=== PATIENT | female | born 1985 | race Caucasian/White ===

== ENCOUNTER 2018-10-17 21:56 | Emergency (ER) | payer SELFPAY ==
[2018-10-17] MEDS ORDERED: Sodium Chloride 0.9% 1,000 ML IV ONE (22:20)
[2018-10-17] MEDS ORDERED: Ondansetron 4 MG/2 ML SDV IVPUSH ONE (22:21)
[2018-10-17] MEDS ORDERED: HYDROmorphone 1 MG/ML Syringe IVPUSH ONE (22:37)
[2018-10-17] MEDS ORDERED: Metoclopramide 10 MG/2 ML SDV IVPUSH ONE (23:03)
[2018-10-18] MEDS ORDERED: diphenhydrAMINE 50 MG/ML SDV IVPUSH ONE (00:31)
[2018-10-18] MEDS ORDERED: Sodium Chloride 0.9% 1,000 ML IV ONE (00:36)
--- NOTE | 2018-10-18 01:04 | EDM.PDOC ---
ED HPI GENERAL MEDICAL PROBLEM - General Chief Complaint: Abdominal Pain Stated Complaint: VOMMITTING AND DIARIAH FOR HOURS LIGHTHEADED Time Seen by Provider: 10/17/18 22:32 Source of Information: Reports: Patient History Limitations: Reports: No Limitations - History of Present Illness INITIAL COMMENTS - FREE TEXT/NARRATIVE: The patient presents with nausea, vomiting, diarrhea and abdominal pain. This started today. She has no fever but she does have chills. She has no chest pain or shortness of breath. She has no appendix but she still has a gallbladder. She does not think she is . She did not come in contact with anyone who is sick and she has not eaten any bad food. Onset: Gradual Duration: Hour(s): Location: Reports: Abdomen Quality: Reports: Sharp Severity: Severe Improves with: Reports: None Worsens with: Reports: None Associated Symptoms: Reports: Fever/Chills, Nausea/Vomiting. Denies: Chest Pain , Cough, Headaches, Shortness of Breath Middle Abdomen Pain Score (Numeric/FACES): 0 - Related Data Allergies Allergy/AdvReac Type Severity Reaction Status Date / Time aspirin Allergy Lightheaded Verified 10/17/18 22:32 ness Home Meds: Home Meds Ondansetron [Zofran ODT] 4 mg PO Q6H PRN #20 tab.dis 10/18/18 [Rx] ED ROS GENERAL - Review of Systems Review Of Systems: See Below Constitutional: Reports: Chills. Denies: Fever HEENT: Reports: No Symptoms Respiratory: Reports: No Symptoms Cardiovascular: Reports: No Symptoms Endocrine: Reports: No Symptoms GI/Abdominal: Reports: Abdominal Pain, Diarrhea, Nausea, Vomiting : Reports: No Symptoms Musculoskeletal: Reports: No Symptoms Skin: Reports: No Symptoms Neurological: Reports: No Symptoms ED EXAM, GI/ABD - Physical Exam Exam: See Below Exam Limited By: No Limitations General Appearance: Alert, No Apparent Distress Ears: Normal External Exam Nose: Normal Inspection Head: Atraumatic, Normocephalic Neck: Normal Inspection Respiratory/Chest: No Respiratory Distress, Lungs Clear, Normal Breath Sounds Cardiovascular: Regular Rate, Rhythm, No Edema, No Murmur GI/Abdominal Exam: Soft, No Organomegaly, No Mass, Tender (Moderate tenderness to the upper abdomen) Course - Vital Signs Last Recorded V/S: Last Vital Signs Temp 96.5 F 10/17/18 22:28 Pulse 105 H 10/17/18 22:28 Resp 20 10/17/18 22:28 BP 118/67 10/17/18 22:28 Pulse Ox 97 10/17/18 22:28 - Orders/Labs/Meds Orders: Active Orders 24 hr Category Date Time Status Abdomen Pelvis w Cont [CT] Stat Exams 10/18/18 00:31 Taken ED Antiemetic Medication Reflex [OM.PC] Stat Oth 10/17/18 22:37 Ordered Labs: Laboratory Tests 10/17/18 10/17/18 10/17/18 Range/Units 22:25 22:25 22:25 WBC 19.81 H (3.98-10.04) K/mm3 RBC 5.21 (3.98-5.22) M/mm3 Hgb 15.4 (11.2-15.7) gm/L Hct 46.2 H (34.1-44.9) % MCV 88.7 (79.4-94.8) fl MCH 29.6 (25.6-32.2) pg MCHC 33.3 (32.2-35.5) g/dl RDW Std Deviation 44.6 (36.4-46.3) fL Plt Count 462 H (182-369) K/mm3 MPV 10.0 (9.4-12.3) fl Neut % (Auto) 86.2 H (34.0-71.1) % Lymph % (Auto) 6.4 L (19.3-51.7) % Cole % (Auto) 5.9 (4.7-12.5) % Eos % (Auto) 1.0 (0.7-5.8) Baso % (Auto) 0.2 (0.1-1.2) % Neut # (Auto) 17.10 H (1.56-6.13) K/mm3 Lymph # (Auto) 1.26 (1.18-3.74) K/mm3 Cole # (Auto) 1.17 H (0.24-0.36) K/mm3 Eos # (Auto) 0.19 (0.04-0.36) K/mm3 Baso # (Auto) 0.03 (0.01-0.08) K/mm3 Manual Slide Review Abnormal smear Sodium 139 (136-145) mEq/L Potassium 4.2 (3.5-5.1) mEq/L Chloride 104 (98-107) mEq/L Carbon Dioxide 24 (21-32) mEq/L Anion Gap 15.2 H (5-15) BUN 17 (7-18) mg/dL Creatinine 1.0 (0.55-1.02) mg/dL Est Cr Clr Drug Dosing 89.43 mL/min Estimated GFR (MDRD) > 60 (>60) mL/min BUN/Creatinine Ratio 17.0 (14-18) Glucose 147 H (74-106) mg/dL Calcium 9.0 (8.5-10.1) mg/dL Total Bilirubin 0.7 (0.2-1.0) mg/dL AST 11 L (15-37) U/L ALT 21 (14-59) U/L Alkaline Phosphatase 79 (46-116) U/L Total Protein 8.7 H (6.4-8.2) g/dl Albumin 4.1 (3.4-5.0) g/dl Globulin 4.6 gm/dL Albumin/Globulin Ratio 0.9 L (1-2) Lipase 108 (73-393) U/L Urine Color (Yellow) Urine Appearance (Clear) Urine pH (5.0-8.0) Ur Specific [place] (1.005-1.030) Urine Protein (Negative) Urine Glucose (UA) (Negative) Urine Ketones (Negative) Urine Occult Blood (Negative) Urine Nitrite (Negative) Urine Bilirubin (Negative) Urine Urobilinogen (0.2-1.0) Ur Leukocyte Esterase (Negative) Urine HCG, Qual (NEGATIVE) 10/18/18 10/18/18 Range/Units 00:17 00:17 WBC (3.98-10.04) K/mm3 RBC (3.98-5.22) M/mm3 Hgb (11.2-15.7) gm/L Hct (34.1-44.9) % MCV (79.4-94.8) fl MCH (25.6-32.2) pg MCHC (32.2-35.5) g/dl RDW Std Deviation (36.4-46.3) fL Plt Count (182-369) K/mm3 MPV (9.4-12.3) fl Neut % (Auto) (34.0-71.1) % Lymph % (Auto) (19.3-51.7) % Cole % (Auto) (4.7-12.5) % Eos % (Auto) (0.7-5.8) Baso % (Auto) (0.1-1.2) % Neut # (Auto) (1.56-6.13) K/mm3 Lymph # (Auto) (1.18-3.74) K/mm3 Cole # (Auto) (0.24-0.36) K/mm3 Eos # (Auto) (0.04-0.36) K/mm3 Baso # (Auto) (0.01-0.08) K/mm3 Manual Slide Review Sodium (136-145) mEq/L Potassium (3.5-5.1) mEq/L Chloride (98-107) mEq/L Carbon Dioxide (21-32) mEq/L Anion Gap (5-15) BUN (7-18) mg/dL Creatinine (0.55-1.02) mg/dL Est Cr Clr Drug Dosing mL/min Estimated GFR (MDRD) (>60) mL/min BUN/Creatinine Ratio (14-18) Glucose (74-106) mg/dL Calcium (8.5-10.1) mg/dL Total Bilirubin (0.2-1.0) mg/dL AST (15-37) U/L ALT (14-59) U/L Alkaline Phosphatase (46-116) U/L Total Protein (6.4-8.2) g/dl Albumin (3.4-5.0) g/dl Globulin gm/dL Albumin/Globulin Ratio (1-2) Lipase (73-393) U/L Urine Color Yellow (Yellow) Urine Appearance Clear (Clear) Urine pH 5.5 (5.0-8.0) Ur Specific [place] > or = 1.030 (1.005-1.030) Urine Protein Trace H (Negative) Urine Glucose (UA) Negative (Negative) Urine Ketones Trace H (Negative) Urine Occult Blood Negative (Negative) Urine Nitrite Negative (Negative) Urine Bilirubin Negative (Negative) Urine Urobilinogen 0.2 (0.2-1.0) Ur Leukocyte Esterase Negative (Negative) Urine HCG, Qual Negative (NEGATIVE) Meds: Medications Discontinued Medications Generic Name Dose Route Start Last Admin Trade Name Marii PRN Reason Stop Dose Admin Diphenhydramine HCl 50 mg 10/18/18 00:31 10/18/18 00:38 Benadryl IVPUSH 10/18/18 00:32 50 mg ONETIME ONE Administration Hydromorphone HCl 0.5 mg 10/17/18 22:37 10/17/18 22:48 Dilaudid IVPUSH 10/17/18 22:38 0.5 mg ONETIME ONE Administration Sodium Chloride 1,000 mls @ 999 mls/hr 10/17/18 22:20 10/17/18 22:31 Normal Saline IV 10/17/18 23:20 999 mls/hr ONETIME ONE Administration Sodium Chloride 1,000 mls @ 1,000 mls/hr 10/18/18 00:36 10/18/18 00:39 Normal Saline IV 10/18/18 01:35 1,000 mls/hr ONETIME ONE Administration Iopamidol 100 ml 10/18/18 01:30 10/18/18 02:11 Isovue-370 (76%) IV 10/18/18 01:31 100 ml ONETIME ONE Administration Metoclopramide HCl 10 mg 10/17/18 23:03 10/17/18 23:11 Reglan IVPUSH 10/17/18 23:04 10 mg ONETIME ONE Administration Ondansetron HCl 4 mg 10/17/18 22:21 10/17/18 22:31 Zofran IVPUSH 10/17/18 22:22 4 mg ONETIME ONE Administration - Re-Assessments/Exams Free Text/Narrative Re-Assessment/Exam: 10/18/18 01:02 I ordered an IV NS 1L bolus, zofran 4mg IV, labs, and UA. Her WBC is elevated at 19.81. Her anion gap was elevated slightly at 15.2. Her glucose is elevated at 147. Her lipase is normal. Her HCG is negative. Her UA shows no UTI. She still has nausea so I ordered reglan 10mg and then benadryl 50mg IV. I ordered a CT because of her WBC and pain. 10/18/18 03:[address] shows nothing acute. I will discharge her home. Departure - Departure Time of Disposition: 03:35 Disposition: Home, Self-Care 01 Condition: Good Clinical Impression: Gastroenteritis - Discharge Information *PRESCRIPTION DRUG MONITORING PROGRAM REVIEWED*: Not Applicable *COPY OF PRESCRIPTION DRUG MONITORING REPORT IN PATIENT VALE: Not Applicable Prescriptions: Ondansetron [Zofran ODT] 4 mg PO Q6H PRN #20 tab.dis PRN Reason: Nausea\vomiting Referrals: PCP,None [Primary Care Provider] - Delores Leblanc PA-C [Physician Applied Technologist] - Forms: ED Department Discharge Additional Instructions: Drink plenty of fluids like water, powerade, or gatorade. Take the zofran every 6 hours as needed for nausea or vomiting. Advance your diet as tolerated. Start with liquids tomorrow and then advance to crackers or something mile and advance from there. Please return if you are worse. - My Orders Last 24 Hours: My Active Orders 10/17/18 22:37 ED Antiemetic Medication Reflex [OM.PC] Stat 10/18/18 00:31 Abdomen Pelvis w Cont [CT] Stat - Assessment/Plan Last 24 Hours: My Active Orders 10/17/18 22:37 ED Antiemetic Medication Reflex [OM.PC] Stat 10/18/18 00:31 Abdomen Pelvis w Cont [CT] Stat
[2018-10-18] MEDS ORDERED: Iopamidol 755 Mg/ML 200 ML Bottle IV ONE (01:30)
[2018-10-18] MEDS ORDERED: Ondansetron 4 MG/2 ML SDV IVPUSH ONE (03:32)
--- NOTE | 2018-10-18 07:19 | CT ---
CT abdomen and pelvis Technique: Multiple axial sections were obtained from above the dome of the diaphragm inferiorly through the pubic symphysis. Intravenous contrast was utilized. No oral contrast has been given which limits evaluation of bowel. Comparison: No prior abdominal imaging. Findings: Small portion of the visualized lung bases shows nothing acute. Liver contains no focal parenchymal abnormality but shows mild diffuse decreased density compatible with fatty infiltration. Spleen appears within normal limits. Adrenal glands show no nodule. Kidneys show symmetric contrast enhancement without hydronephrosis or mass. Pancreas is within normal limits. Gallbladder contains no calcified gallstones. Aorta shows no aneurysm. No retroperitoneal adenopathy or mesenteric abnormalities are seen. No pelvic mass or adenopathy is seen. Scattered fluid is seen within the colon and small bowel with no bowel dilatation being seen. Delayed images show contrast within the ureters and within the bladder. Incidental IUD is noted within the uterus. Bone window settings were reviewed which appear within normal limits for the patient's age. Impression: 1. Fatty infiltration within the liver. 2. Fluid within nondilated colon and small bowel. Please correlate if patient has any symptoms of gastroenteritis. 3. No additional abnormality appreciated on CT study of the abdomen and pelvis. Diagnostic code #3 I agree with preliminary report from [facility], finalized on 10/18/18, 4:28 AM Central Time
== END 2018-10-18 03:47 | disposition home or self-care (01) ==
LOC: JD.ED 21:56
DX: K52.9 Noninfective gastroenteritis and colitis, unspecified (principal); Z88.6 Allergy status to analgesic agent
CPT/HCPCS: 36415; 74177; 80053; 81003; 81025; 83690; 85025; 96361; 96374; 96375; 96376; 99284; J1170; J1200; J2405; J2765; J7040; Q9967

== ENCOUNTER 2020-06-11 20:52 | Emergency (ER) | payer MEDICAID ==
[2020-06-11] MEDS ORDERED: Amoxicillin/Clavulanate K 875-125 MG Tab PO ONE (22:02)
--- NOTE | 2020-06-11 22:11 | EDM.PDOC ---
ED HPI GENERAL MEDICAL PROBLEM - General Chief Complaint: Respiratory Problem Stated Complaint: SOB Time Seen by Provider: 06/11/20 21:06 Source of Information: Reports: Patient, RN Notes Reviewed History Limitations: Reports: No Limitations - History of Present Illness INITIAL COMMENTS - FREE TEXT/NARRATIVE: Patient is a 34-year-old female presenting to the emergency department with complaints of a 2-week history of sinus pressure and congestion as well as postnasal drip. Tonight she developed a cough and a feeling of shortness of breath and tightness in her right chest. She denies any fever or chills, nausea, vomiting, or diarrhea. No one else within her family is sick. Vital signs on triage showed an oxygen saturation of 98% on room air, respiratory rate 16, blood pressure slightly elevated at 160/89, pulse 87, temperature 96.7. Chest Pain Score (Numeric/FACES): 7 - Related Data Allergies Allergy/AdvReac Type Severity Reaction Status Date / Time coconut Allergy Severe Hives Verified 06/11/20 21:04 aspirin AdvReac Severe Other Verified 06/11/20 21:04 Home Meds: Home Meds Amoxicillin/Clavulanate K [Augmentin 875-125 MG] 1 tab PO BID 14 Days #7 tablet 06/11/20 [Rx] Azithromycin 250 mg PO ASDIRECTED 4 Days #4 tablet 06/11/20 [Rx] Copper [Paragard T 380-A] 1 each IY ASDIRECTED 06/11/20 [History] Sertraline [Zoloft] 50 mg PO DAILY 06/11/20 [History] Past Medical History Gastrointestinal History: Reports: Inflammatory Bowel Disease PELTS SKINNER History: Reports: Musculoskeletal History: Reports: Other (See Below) Psychiatric History: Reports: Anxiety Endocrine/Metabolic History: Reports: Diabetes, Gestational, Obesity/BMI 30+ - Infectious Disease History Infectious Disease History: Reports: Shingles - Past Surgical History HEENT Surgical History: Reports: Oral Surgery GI Surgical History: Reports: Appendectomy Social & Family History - Family History Family Medical History: No Pertinent Family History - Tobacco Use Tobacco Use Status *Q: Never Tobacco User - Caffeine Use Caffeine Use: Reports: Coffee - Recreational Drug Use Recreational Drug Use: No - Living Situation & Occupation Living situation: Reports: , with Spouse, with Family (2 kids) Occupation: Unemployed ED ROS GENERAL - Review of Systems Review Of Systems: See Below Constitutional: Reports: No Symptoms. Denies: Fever, Chills, Fatigue HEENT: Reports: Sinus Problem Respiratory: Reports: Shortness of Breath, Cough Cardiovascular: Reports: No Symptoms Endocrine: Reports: No Symptoms GI/Abdominal: Reports: No Symptoms : Reports: No Symptoms Musculoskeletal: Reports: No Symptoms Skin: Reports: No Symptoms Neurological: Reports: No Symptoms Psychiatric: Reports: No Symptoms Hematologic/Lymphatic: Reports: No Symptoms Immunologic: Reports: No Symptoms ED EXAM, GENERAL - Physical Exam Exam: See Below Exam Limited By: No Limitations General Appearance: Alert, WD/WN, No Apparent Distress Head: Atraumatic, Normocephalic, Sinus Tenderness (bilateral maxillary and frontal) Neck: Normal Inspection, Supple, Non-Tender, Full Range of Motion Respiratory/Chest: No Respiratory Distress, Lungs Clear, Normal Breath Sounds, No Accessory Muscle Use, Chest Non-Tender Cardiovascular: Normal Peripheral Pulses, Regular Rate, Rhythm, No Edema, No Gallop, No JVD, No Murmur, No Rub GI/Abdominal: Normal Bowel Sounds, Soft, Non-Tender, No Organomegaly, No Distention, No Abnormal Bruit, No Mass Neurological: Alert, Oriented, CN II-XII Intact, Normal Cognition, Normal Gait, Normal Reflexes, No Motor/Sensory Deficits Psychiatric: Normal Affect, Normal Mood Skin Exam: Warm, Dry, Intact, Normal Color, No Rash Course - Vital Signs Last Recorded V/S: Last Vital Signs Temp 96.7 F L 06/11/20 21:00 Pulse 87 06/11/20 21:00 Resp 16 06/11/20 21:00 BP 160/89 H 06/11/20 21:00 Pulse Ox 98 06/11/20 21:00 - Orders/Labs/Meds Orders: Active Orders 24 hr Category Date Time Status Chest 1V Frontal [CR] Stat Exams 06/11/20 21:06 Taken CORONAVIRUS COVID-19 PCR PHL Routine Lab 06/11/20 21:07 Ordered Amoxicillin/Clavulanate K [Augmentin 875 MG/125 MG] Med 06/11/20 22:02 Once 1 tab PO ONETIME ONE Azithromycin [Zithromax] Med 06/11/20 22:15 Ordered 500 mg PO DAILY Medication Orders Azithromycin (Zithromax) 500 mg PO DAILY DAMASO Meds: Medications Generic Name Dose Route Start Last Admin Trade Name Marii PRN Reason Stop Dose Admin Azithromycin 500 mg 06/11/20 22:15 Zithromax PO DAILY DAMASO - Re-Assessments/Exams Free Text/Narrative Re-Assessment/Exam: 06/11/20 22:12 Patient is a 34-year-old female presenting to the emergency department with complaints of a 2-week history of what she describes as a sinus infection as well as onset of cough and shortness of breath this evening. She has had no known sick exposures. Oxygen saturation was 98% on room air. Chest x-ray shows right basilar alveolar density concerning for pneumonia. Given her 2-week history of nasal congestion as well as the x-ray findings, it is possible that she could be suffering from COVID-19, however chest x-ray does not differentiate between viral and bacterial pneumonia. She could also be suffering from a bacterial sinusitis with community-acquired pneumonia. Plans for today will be to start her on treatment with Augmentin for sinusitis of azithromycin for committee acquired pneumonia. We will Covid test her. Recommend isolation. Discussed return precautions. Discharge instructions as documented. Departure - Departure Time of Disposition: 22:14 Disposition: Home, Self-Care 01 Condition: Good Clinical Impression: Pneumonia Qualifiers: Pneumonia type: due to unspecified organism Laterality: right Lung location: unspecified part of lung Qualified Code(s): J18.9 - Pneumonia, unspecified organism Sinusitis Qualifiers: Sinusitis location: unspecified location Chronicity: acute Recurrence: not specified as recurrent Qualified Code(s): J01.90 - Acute sinusitis, unspecified - Discharge Information *PRESCRIPTION DRUG MONITORING PROGRAM REVIEWED*: No *COPY OF PRESCRIPTION DRUG MONITORING REPORT IN PATIENT VALE: No Prescriptions: Amoxicillin/Clavulanate K [Augmentin 875-125 MG] 1 tab PO BID 14 Days #7 tablet Azithromycin 250 mg PO ASDIRECTED 4 Days #4 tablet Instructions: Shortness of Breath, Adult, [id number], Sinusitis, Adult Referrals: Delores Leblanc PA-C [Primary Care Provider] - Additional Instructions: You were seen in the emergency department today for 2-week history of sinus congestion and pressure as well as onset of cough and shortness of breath this evening. 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 Your sinus pressure could also be viral, however given a 2-week history, we will treat as possible bacterial sinusitis as well. You been started on Augmentin for treatment of sinusitis as well as azithromycin for treatment of community-acquired pneumonia. You have been tested for COVID-19. You will be notified when results are available which is generally 24 to 72 hours. You should isolate at home until symptoms resolve or until advised otherwise by the [facility]. Return to ER for any new or worsening symptoms of concern. Sepsis Event Note (ED) - Evaluation Sepsis Screening Result: No Definite Risk - Focused Exam Vital Signs: Vital Signs Temp Pulse Resp BP Pulse Ox 06/11/20 21:00 96.7 F L 87 16 160/89 H 98 - My Orders Last 24 Hours: My Active Orders 06/11/20 21:06 Chest 1V Frontal [CR] Stat 06/11/20 21:07 CORONAVIRUS COVID-19 PCR PHL Routine 06/11/20 22:02 Amoxicillin/Clavulanate K [Augmentin 875 MG/125 MG] 1 tab PO ONETIME ONE 06/11/20 22:15 Azithromycin [Zithromax] 500 mg PO DAILY - Assessment/Plan Last 24 Hours: My Active Orders 06/11/20 21:06 Chest 1V Frontal [CR] Stat 06/11/20 21:07 CORONAVIRUS COVID-19 PCR PHL Routine 06/11/20 22:02 Amoxicillin/Clavulanate K [Augmentin 875 MG/125 MG] 1 tab PO ONETIME ONE 06/11/20 22:15 Azithromycin [Zithromax] 500 mg PO DAILY
[2020-06-11] MEDS ORDERED: Azithromycin 250 MG Tab PO SCH (22:15)
--- NOTE | 2020-06-12 08:59 | CR ---
PROCEDURE INFORMATION: Exam: XR Chest, 1 View Exam date and time: 06/11/2020 9:06 PM Age: 34 years old Clinical indication: Cough and shortness of breath; Patient HX: Cough, SOB TECHNIQUE: Imaging protocol: XR of the chest Views: 1 view. COMPARISON: No relevant prior studies available. FINDINGS: Lungs: Normal pulmonary expansion. Pulmonary vasculature grossly normal. Right basilar alveolar opacities concerning for pneumonia. Pleural space: No pleural effusion. No pneumothorax. Heart/Mediastinum: Heart size normal. No tracheal/mediastinal shift. Bones/joints: No acute osseous abnormalities are identified. IMPRESSION: Right basilar alveolar density concerning for pneumonia. Thank you for allowing us to participate in the care of your patient. Dictated and Authenticated by: Joe Mcclendon MD 06/11/2020 10:39 PM Central Time ([place] & [place]) [facility]ENTER[facility]
== END 2020-06-11 22:35 | disposition home or self-care (01) ==
LOC: JD.ED 20:52
DX: U07.1 COVID-19 (principal); J12.89 Other viral pneumonia; J01.90 Acute sinusitis, unspecified; F41.9 Anxiety disorder, unspecified; E66.9 Obesity, unspecified; Z68.39 Body mass index [BMI] 39.0-39.9, adult; Z91.018 Allergy to other foods; Z88.6 Allergy status to analgesic agent; Z79.899 Other long term (current) drug therapy
CPT/HCPCS: 71045; 87635; 99285; A9270; 99283; U0002

== ENCOUNTER 2020-10-26 16:05 | Emergency (ER) | payer MEDICAID, OTHER ==
[2020-10-26] MEDS ORDERED: LORazepam 0.5 MG Tab PO ONE (16:29)
--- NOTE | 2020-10-26 16:36 | EDM.PDOC ---
ED HPI GENERAL MEDICAL PROBLEM - General Chief Complaint: Behavioral/Psych Stated Complaint: ANXIETY ATTACK Time Seen by Provider: 10/26/20 16:13 Source of Information: Reports: Patient, RN Notes Reviewed History Limitations: Reports: No Limitations - History of Present Illness INITIAL COMMENTS - FREE TEXT/NARRATIVE: Patient is a 35-year-old female who presents to the ER for her panic attack. Patient notes that she has been having increasing issues with 's behavioral health for some time but today seems to have worsened quite a bit. Apparently her is likely experiencing a psychotic episode. He has not been threatening to her however. She does note that she is complaining of chest tightness, trouble catching her breath. She is somewhat shook up, and tearful when answering questions but answers everything appropriately. She does have a history of anxiety, and has been prescribed Klonopin as needed for this but states that she only takes this at nighttime as it seems to make her very sleepy. She denies any fevers or chills, cough or shortness of breath, nausea/vomiting/diarrhea. 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: Musculoskeletal History: Reports: Other (See Below) Psychiatric History: Reports: Anxiety Endocrine/Metabolic History: Reports: Diabetes, Gestational, Obesity/BMI 30+ - Infectious Disease History Infectious Disease History: Reports: Novel Coronavirus (May 2020), Shingles - Past Surgical History HEENT Surgical History: Reports: Oral Surgery GI Surgical History: Reports: Appendectomy Social & Family History - Family History Family Medical History: No Pertinent Family History - Tobacco Use Tobacco Use Status *Q: Never Tobacco User - Caffeine Use Caffeine Use: Reports: Coffee - Recreational Drug Use Recreational Drug Use: No - Living Situation & Occupation Living situation: Reports: , with Spouse, with Family (2 kids) Occupation: Unemployed ED ROS GENERAL - Review of Systems Review Of Systems: Comprehensive ROS is negative, except as noted in HPI. ED EXAM, GENERAL - Physical Exam Exam: See Below Exam Limited By: No Limitations General Appearance: Alert, WD/WN, No Apparent Distress Respiratory/Chest: No Respiratory Distress, Lungs Clear, Normal Breath Sounds, No Accessory Muscle Use, Chest Non-Tender Cardiovascular: Normal Peripheral Pulses, Regular Rate, Rhythm, No Edema, No Murmur Peripheral Pulses: 2+: Radial (L), Radial (R) GI/Abdominal: Normal Bowel Sounds, Soft, Non-Tender, No Distention, No Mass Extremities: Normal Inspection, Normal Capillary Refill Neurological: Alert, Oriented, Normal Cognition, No Motor/Sensory Deficits Psychiatric: Normal Affect, Normal Mood Skin Exam: Warm, Dry, Intact, Normal Color, No Rash Course - Vital Signs Last Recorded V/S: Last Vital Signs Temp 98.7 F 10/26/20 16:12 Pulse 108 H 10/26/20 16:12 Resp 16 10/26/20 16:12 BP 144/97 H 10/26/20 16:12 Pulse Ox 98 10/26/20 16:12 - Orders/Labs/Meds Meds: Medications Discontinued Medications Generic Name Dose Route Start Last Admin Trade Name Marii PRN Reason Stop Dose Admin Lorazepam 1 mg 10/26/20 16:29 10/26/20 16:40 Lorazepam 0.5 Mg Tab PO 10/26/20 16:30 1 mg ONETIME ONE Administration - Re-Assessments/Exams Free Text/Narrative Re-Assessment/Exam: 10/26/20 16:33 Patient presents to the ER for her anxiety attack, I will give her 1 mg p.o. Ativan for initial management. 10/26/20 17:58 Patient was reassessed at bedside, and states that her anxiety is much better. We will go ahead and discharge home with a few tablets of Ativan, and have her follow with Hermila Goodman sometime this week or into the next week about ongoing stress management. Departure - Departure Time of Disposition: 17:59 Disposition: Home, Self-Care 01 Condition: Good Clinical Impression: Panic attack due to exceptional stress - Discharge Information *PRESCRIPTION DRUG MONITORING PROGRAM REVIEWED*: Yes *COPY OF PRESCRIPTION DRUG MONITORING REPORT IN PATIENT VALE: No Prescriptions: LORazepam [Ativan] 1 mg PO TID PRN #12 tab PRN Reason: Anxiety Instructions: Panic Attack, [id number] Referrals: Hermila Goodman ROVER TENDER [Primary Care Provider] - Forms: ED Department Discharge Additional Instructions: You were seen in the ER for your panic attack. You were given 1mg PO Ativan (lorazepam) while being in the ER, this seemed to help relieve your anxiety. You were given a prescription for this medication to help relieve your anxiety over the next few days. This medication was electronically sent to the [facility] located near [facility]. Please schedule a follow up appointment with your primary provider, Hermila Goodman to discuss you anxiety medications. Please return to the ER at any time if your symptoms change or worsen. Sepsis Event Note (ED) - Evaluation Sepsis Screening Result: No Definite Risk - Focused Exam Vital Signs: Vital Signs Temp Pulse Resp BP Pulse Ox 10/26/20 16:12 98.7 F 108 H 16 144/97 H 98
== END 2020-10-26 18:42 | disposition home or self-care (01) ==
LOC: JD.ED 16:05
DX: F41.0 Panic disorder [episodic paroxysmal anxiety] (principal); F43.9 Reaction to severe stress, unspecified; E66.9 Obesity, unspecified; Z68.38 Body mass index [BMI] 38.0-38.9, adult; Z91.018 Allergy to other foods; Z88.6 Allergy status to analgesic agent
CPT/HCPCS: 99283; A9270

== ENCOUNTER 2021-01-07 19:43 | Emergency (ER) | payer MEDICAID ==
[2021-01-07] MEDS ORDERED: Ondansetron 4 MG/2 ML SDV IVPUSH ONE (20:12)
[2021-01-07] MEDS ORDERED: Sodium Chloride 0.9% 10 ML Syringe FLUSH PRN (20:12)
[2021-01-07] MEDS ORDERED: Ketorolac 30 MG/ML SDV IVPUSH ONE (20:12)
[2021-01-07] MEDS ORDERED: Sodium Chloride 0.9% 1,000 ML IV ONE ×2 (20:12→23:23)
--- NOTE | 2021-01-07 20:18 | EDM.PDOC ---
<Mary Allen M - Last Filed: 01/08/21 01:07> ED HPI GENERAL MEDICAL PROBLEM - General Chief Complaint: Flank Pain Stated Complaint: POSS KIDNEY STONE Time Seen by Provider: 01/07/21 20:00 Source of Information: Reports: Patient History Limitations: Reports: No Limitations - History of Present Illness INITIAL COMMENTS - FREE TEXT/NARRATIVE: 35-year-old female presents the emergency department this evening with complaints of right flank pain. She states that this afternoon she developed some low back pain that has progressed to severe stabbing right flank pain which radiates around the right side of her abdomen and down into her groin. She states she is developed associated nausea with this. She states she has also had urinary symptoms that started this afternoon. She states she has burning and frequency as well. She denies any recent fever, chills, vomiting or diarrhea. She denies any other abdominal pain. She denies any headache, cough or shortness of breath. She states that she has been otherwise healthy up until today when she developed the symptoms. Onset: Today, Gradual Location: Reports: Abdomen (Right flank) Quality: Reports: Sharp, Stabbing Severity: Severe right flank Pain Score (Numeric/FACES): 10 - Related Data Allergies Allergy/AdvReac Type Severity Reaction Status Date / Time coconut Allergy Severe Hives Verified 10/26/20 16:16 aspirin AdvReac Severe Other Verified 10/26/20 16:16 Home Meds: Home Meds Amphetamine/Dextroamphetamine [Adderall] 5 mg PO BID 10/26/20 [History] ClonazePAM [KlonoPIN] 0.5 mg PO DAILY PRN 10/26/20 [History] LORazepam [Ativan] 1 mg PO TID PRN #12 tab 10/26/20 [Rx] Ondansetron [Zofran ODT] 1 tab PO Q8H PRN #10 tab.dis 01/08/21 [Rx] Tamsulosin [Flomax] 1 cap PO QPM PRN #10 cap.er 01/08/21 [Rx] oxyCODONE HCl/Acetaminophen [Percocet 2.5-325 mg Tablet] 1 - 2 tab PO Q6H PRN #20 tablet 01/08/21 [Rx] Past Medical History Gastrointestinal History: Reports: Inflammatory Bowel Disease 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: Musculoskeletal History: Reports: Other (See Below) Psychiatric History: Reports: Anxiety Endocrine/Metabolic History: Reports: Diabetes, Gestational, Obesity/BMI 30+ - Infectious Disease History Infectious Disease History: Reports: Novel Coronavirus, Shingles Other Infectious Disease History: May 2020 - Past Surgical History HEENT Surgical History: Reports: Oral Surgery GI Surgical History: Reports: Appendectomy Social & Family History - Family History Family Medical History: No Pertinent Family History - Tobacco Use Tobacco Use Status *Q: Never Tobacco User - Caffeine Use Caffeine Use: Reports: Coffee - Recreational Drug Use Recreational Drug Use: No - Living Situation & Occupation Living situation: Reports: , with Spouse, with Family (2 kids) Occupation: Unemployed ED ROS GENERAL - Review of Systems Review Of Systems: Comprehensive ROS is negative, except as noted in HPI. ED EXAM, RENAL/ - Physical Exam Exam: See Below Exam Limited By: No Limitations General Appearance: Alert, WD/WN, Moderate Distress (Due to right flank pain) Ears: Normal External Exam, Hearing Grossly Normal Nose: Normal Inspection Throat/Mouth: Normal Inspection, Normal Lips, Normal Voice, No Airway Compromise Head: Atraumatic Neck: Normal Inspection, Supple Respiratory/Chest: No Respiratory Distress, Lungs Clear, Normal Breath Sounds, No Accessory Muscle Use, Chest Non-Tender Cardiovascular: Normal Peripheral Pulses, Regular Rate, Rhythm, No Edema, No Murmur GI/Abdominal: Normal Bowel Sounds, Soft, Non-Tender, No Distention (Female) Exam: Deferred Rectal (Female) Exam: Deferred Back Exam: Normal Inspection, CVA Tenderness (R). No: CVA Tenderness (L) Extremities: Normal Inspection Neurological: Alert, Oriented, Normal Cognition Psychiatric: Normal Affect, Normal Mood Skin Exam: Warm, Dry, Intact, Normal Color, No Rash Lymphatic: No Adenopathy Course - Vital Signs Text/Narrative:: Patient presents with gradual onset of right flank pain that has worsened in severity since about 5 PM this evening. She has associated nausea with this. She also has urinary frequency, urgency, and burning. States that she has not ever had a kidney stone however her mom gets kidney stones. I have ordered for the patient to receive a liter of IV fluids, Zofran for the nausea and Toradol for the pain. I have ordered labs to include a CBC, CMP, C-reactive protein, urinalysis with micro and culture if indicated and a CT of the abdomen pelvis without contrast to rule out kidney stone. - Re-Assessments/Exams Free Text/Narrative Re-Assessment/Exam: 01/07/21 23:22 Hematology reveals a WBC of 12.73, hemoglobin 14.0, hematocrit 42.4, platelet count 412, neutrophil percentage 63.7, Chemistry reveals a sodium of 142, potassium 3.6, anion gap 18.6, BUN 23, creatinine 1.1 Glucose 110, C-reactive protein 1.4 Urinalysis reveals 1+ urine protein, 3+ occult blood, trace of leukocyte Estrace, urine RBC greater than 100, urine squamous epithelial cells 5-10, urine is negative There is blood noted in the patient's urine however that she then tells me that she is menstruating at this time. 01/07/21 23:23 Patient is slightly dehydrated so I have ordered for her to receive another liter of normal saline. I am waiting on the radiologist report from CT of the abdomen and pelvis. Apparently there is a delay in their reading. 01/08/21 01:07 I had the mathematical engineering technician check to see if Maday had read the CT scan. He tells me that the scan is still in the cue to be read. I have handed the patient off to Dr. Damon to assume care. Departure - Departure Disposition: Home, Self-Care 01 Clinical Impression: Ureterolithiasis - Discharge Information Prescriptions: Tamsulosin [Flomax] 1 cap PO QPM PRN #10 cap.er PRN Reason: Pain oxyCODONE HCl/Acetaminophen [Percocet 2.5-325 mg Tablet] 1 - 2 tab PO Q6H PRN #20 tablet PRN Reason: Pain (Severe 7-10) Ondansetron [Zofran ODT] 1 tab PO Q8H PRN #10 tab.dis PRN Reason: Nausea/Vomiting Referrals: PCP,None [Primary Care Provider] - Ignacio Schofield MD [Ordering Only Provider] - Forms: ED Department Discharge Additional Instructions: You were seen in the emergency room after developing right flank pain with some nausea. Work-up in the ER included several blood tests, a urinalysis, a urine test, and a CT of your abdomen and pelvis. The CT found a 3 mm stone in your right ureter, just above your bladder. Based on the size and location of the stone, you will most likely pass it on your own within 2 weeks. We recommend that you take asck-iky-ayhcabm ibuprofen, 3 tablets (600 mg) up to every 8 hours, with food, [id number]. A prescription for the opioid pain reliever Percocet has been provided to you. You may take 1 to 2 tablets of Evans up to every 6 hours, as needed for pain not relieved by ibuprofen. If you take Evans, do not drive or operate heavy machinery for 12 hours afterwards. Evans may cause constipation, so consider taking a stool softener. You have also been prescribed the anti-spasm medicine tamsulosin (Flomax). Take 1 tablet of Flomax every evening, starting this evening, 01/08/2021. You have also been prescribed the antinausea medicine Zofran. You may dissolve 1 tablet of Zofran on your tongue up to every 8 hours, as needed for nausea/vomiting. Stay adequately hydrated. It does not really matter what type of fluid you drink. Strain all of your urine. If you capture the stone, take it to your doctor for analysis. If you continue to have right flank pain for more than a week, please follow-up with the urologist Dr. Ignacio Schofield, in [place]. Don't forget that [place] is 1 hour ahead of us. If any other problems, please do not hesitate to return to the ER. Sepsis Event Note (ED) - Evaluation Sepsis Screening Result: No Definite Risk <Chuy Damon - Last Filed: 01/08/21 02:15> Course - Vital Signs Last Recorded V/S: Last Vital Signs Temp 36.1 C 01/07/21 19:59 Pulse 84 01/07/21 19:59 Resp 18 01/07/21 19:59 BP 134/99 H 01/07/21 19:59 Pulse Ox 100 01/07/21 19:59 - Orders/Labs/Meds Orders: Active Orders 24 hr Category Date Time Status Abdomen Pelvis wo Cont [CT] Stat Exams 01/07/21 20:13 Taken CULTURE URINE [MREF] Stat Lab 01/07/21 20:35 Received Sodium Chloride 0.9% [Saline Flush] Med 01/07/21 20:12 Active 10 ml FLUSH ASDIRECTED PRN Saline Lock Insert [OM.PC] Stat Oth 01/07/21 20:12 Ordered Medication Orders Sodium Chloride (Sodium Chloride 0.9% 10 Ml Syringe) 10 ml FLUSH ASDIRECTED PRN PRN Reason: Keep Vein Open Last Admin: 01/07/21 20:40 Dose: 10 ml Documented by: SANDEE Labs: Laboratory Tests 01/07/21 01/07/21 01/07/21 Range/Units 20:35 20:35 20:35 WBC 12.73 H (3.98-10.04) K/mm3 RBC 4.69 (3.98-5.22) M/mm3 Hgb 14.0 (11.2-15.7) gm/dl Hct 42.4 (34.1-44.9) % MCV 90.4 (79.4-94.8) fl MCH 29.9 (25.6-32.2) pg MCHC 33.0 (32.2-35.5) g/dl RDW Std Deviation 45.2 (36.4-46.3) fL Plt Count 412 H (182-369) K/mm3 MPV 10.4 (9.4-12.3) fl Neut % (Auto) 63.7 (34.0-71.1) % Lymph % (Auto) 26.2 (19.3-51.7) % [place] % (Auto) 7.4 (4.7-12.5) % Eos % (Auto) 2.1 (0.7-5.8) Baso % (Auto) 0.4 (0.1-1.2) % Neut # (Auto) 8.11 H (1.56-6.13) K/mm3 Lymph # (Auto) 3.33 (1.18-3.74) K/mm3 [place] # (Auto) 0.94 H (0.24-0.36) K/mm3 Eos # (Auto) 0.27 (0.04-0.36) K/mm3 Baso # (Auto) 0.05 (0.01-0.08) K/mm3 Manual Slide Review Sodium 142 (136-145) mEq/L Potassium 3.6 (3.5-5.1) mEq/L Chloride 105 (98-107) mEq/L Carbon Dioxide 22 (21-32) mEq/L Anion Gap 18.6 H (5-15) BUN 23 H (7-18) mg/dL Creatinine 1.1 H (0.55-1.02) mg/dL Est Cr Clr Drug Dosing 72.01 mL/min Estimated GFR (MDRD) 57 (>60) mL/min BUN/Creatinine Ratio 20.9 H (14-18) Glucose 110 H (70-99) mg/dL Calcium 8.9 (8.5-10.1) mg/dL Total Bilirubin 0.5 (0.2-1.0) mg/dL AST 16 (15-37) U/L ALT 22 (14-59) U/L Alkaline Phosphatase 84 (46-116) U/L C-Reactive Protein 1.4 H* (<1.0) mg/dL Total Protein 7.5 (6.4-8.2) g/dl Albumin 3.8 (3.4-5.0) g/dl Globulin 3.7 gm/dL Albumin/Globulin Ratio 1.0 (1-2) Urine Color [place] H (Yellow) Urine Appearance Cloudy H (Clear) Urine pH 5.5 (5.0-8.0) Ur Specific [place] > or = 1.030 (1.005-1.030) Urine Protein 1+ H (Negative) Urine Glucose (UA) Negative (Negative) Urine Ketones Negative (Negative) Urine Occult Blood 3+ H (Negative) Urine Nitrite Negative (Negative) Urine Bilirubin Negative (Negative) Urine Urobilinogen 1.0 (0.2-1.0) Ur Leukocyte Esterase Trace H (Negative) Urine RBC >100 H (0-5) /hpf Urine WBC 0-5 (0-5) /hpf Ur Squamous Epith Cells 5-10 H (0-5) /hpf Urine Bacteria Few (FEW) /hpf Urine Mucus Few (FEW) /hpf Urine HCG, Qual (NEGATIVE) 01/07/21 Range/Units 20:35 WBC (3.98-10.04) K/mm3 RBC (3.98-5.22) M/mm3 Hgb (11.2-15.7) gm/dl Hct (34.1-44.9) % MCV (79.4-94.8) fl MCH (25.6-32.2) pg MCHC (32.2-35.5) g/dl RDW Std Deviation (36.4-46.3) fL Plt Count (182-369) K/mm3 MPV (9.4-12.3) fl Neut % (Auto) (34.0-71.1) % Lymph % (Auto) (19.3-51.7) % [place] % (Auto) (4.7-12.5) % Eos % (Auto) (0.7-5.8) Baso % (Auto) (0.1-1.2) % Neut # (Auto) (1.56-6.13) K/mm3 Lymph # (Auto) (1.18-3.74) K/mm3 [place] # (Auto) (0.24-0.36) K/mm3 Eos # (Auto) (0.04-0.36) K/mm3 Baso # (Auto) (0.01-0.08) K/mm3 Manual Slide Review Sodium (136-145) mEq/L Potassium (3.5-5.1) mEq/L Chloride (98-107) mEq/L Carbon Dioxide (21-32) mEq/L Anion Gap (5-15) BUN (7-18) mg/dL Creatinine (0.55-1.02) mg/dL Est Cr Clr Drug Dosing mL/min Estimated GFR (MDRD) (>60) mL/min BUN/Creatinine Ratio (14-18) Glucose (70-99) mg/dL Calcium (8.5-10.1) mg/dL Total Bilirubin (0.2-1.0) mg/dL AST (15-37) U/L ALT (14-59) U/L Alkaline Phosphatase (46-116) U/L C-Reactive Protein (<1.0) mg/dL Total Protein (6.4-8.2) g/dl Albumin (3.4-5.0) g/dl Globulin gm/dL Albumin/Globulin Ratio (1-2) Urine Color (Yellow) Urine Appearance (Clear) Urine pH (5.0-8.0) Ur Specific [place] (1.005-1.030) Urine Protein (Negative) Urine Glucose (UA) (Negative) Urine Ketones (Negative) Urine Occult Blood (Negative) Urine Nitrite (Negative) Urine Bilirubin (Negative) Urine Urobilinogen (0.2-1.0) Ur Leukocyte Esterase (Negative) Urine RBC (0-5) /hpf Urine WBC (0-5) /hpf Ur Squamous Epith Cells (0-5) /hpf Urine Bacteria (FEW) /hpf Urine Mucus (FEW) /hpf Urine HCG, Qual Negative (NEGATIVE) Meds: Medications Generic Name Dose Route Start Last Admin Trade Name Marii PRN Reason Stop Dose Admin Sodium Chloride 10 ml 01/07/21 20:12 01/07/21 20:40 Sodium Chloride 0.9% 10 Ml Syringe FLUSH 10 ml ASDIRECTED PRN Administration Keep Vein Open Discontinued Medications Generic Name Dose Route Start Last Admin Trade Name Marii PRN Reason Stop Dose Admin Hydromorphone HCl 0.5 mg 01/07/21 23:12 01/07/21 23:21 Hydromorphone 0.5 Mg/0.5 Ml Syringe IVPUSH 01/07/21 23:13 0.5 mg ONETIME ONE Administration Sodium Chloride 1,000 mls @ 999 mls/hr 01/07/21 20:12 01/07/21 20:39 Normal Saline IV 01/07/21 21:12 999 mls/hr ONETIME ONE Administration Sodium Chloride 1,000 mls @ 999 mls/hr 01/07/21 23:23 01/07/21 23:29 Normal Saline IV 01/08/21 00:23 999 mls/hr ONETIME ONE Administration Ketorolac Tromethamine 30 mg 01/07/21 20:12 01/07/21 20:40 Ketorolac 30 Mg/Ml Sdv IVPUSH 01/07/21 20:13 30 mg ONETIME ONE Administration Ondansetron HCl 4 mg 01/07/21 20:12 01/07/21 20:40 Ondansetron 4 Mg/2 Ml Sdv IVPUSH 01/07/21 20:13 4 mg ONETIME ONE Administration - Re-Assessments/Exams Free Text/Narrative Re-Assessment/Exam: 01/08/21 02:03 CT of the abdomen and pelvis without contrast is read by Maday as "3 mm distal right ureteral calculus at the UVJ with hydroureter and hydronephrosis." 01/08/21 02:06 Test results discussed with the patient. As above, her symptoms appear to be due to a 3 mm distal right ureteral stone. She will be given a urine strainer prior to discharge, and she will be given prescriptions for Percocet, Zofran, and tamsulosin. She is to stay adequately hydrated and strain all of her urine. She will be given a referral to a urologist in [place], in case she does not pass the stone within the next week or two. Departure - Departure Time of Disposition: 02:07 Condition: Good - Discharge Information *PRESCRIPTION DRUG MONITORING PROGRAM REVIEWED*: Not Applicable *COPY OF PRESCRIPTION DRUG MONITORING REPORT IN PATIENT VALE: Not Applicable Sepsis Event Note (ED) - Focused Exam Vital Signs: Vital Signs Temp Pulse Resp BP Pulse Ox 01/07/21 19:59 36.1 C 84 18 134/99 H 100
[2021-01-07] MEDS ORDERED: HYDROmorphone 0.5 MG/0.5 ML Syringe IVPUSH ONE (23:12)
--- NOTE | 2021-01-08 06:18 | CT ---
CT abdomen and pelvis Technique: Multiple axial sections were obtained from above the lung apices inferiorly through the lung bases. Intravenous contrast and oral contrast were not utilized. Study has been performed as a ureteral stone protocol. Reconstructed coronal and sagittal images were then obtained. Comparison: Prior CT abdomen and pelvis study of 10/18/18. Findings: Hydronephrosis seen within the right kidney. Right ureter is dilated into the pelvis. This finding is caused by an obstructing distal right ureteral calculus measuring approximately 5 mm. This calculus is located slightly proximal to the UVJ. No other ureteral calculi are seen. No renal calculi are appreciated. Visualised lung bases show nothing acute. Liver shows mild fatty infiltration. No focal liver abnormality is appreciated. Spleen is within normal limits. Gallbladder contains no calcified gallstones. No abnormality is appreciated within the pancreas. Abdominal aorta shows no aneurysm. No retroperitoneal adenopathy or mesenteric abnormalities are seen. Small fat-containing umbilical hernia is noted. Appendix is not definitely visualized. No pelvic mass or adenopathy is seen. IUD is noted within the endometrial cavity. No free fluid or inflammatory change is seen. Mild diverticuli are seen within the sigmoid colon without findings of diverticulitis. Bone window settings were reviewed which show no acute osseous abnormality. Impression: 1. Hydronephrosis of the right kidney as well as a dilated right ureter. These findings are caused by an obstructing distal right ureteral stone measuring approximately 5 mm located slightly proximal to the UVJ. 2. Fatty infiltration within the liver is seen. 3. No other acute abnormality is appreciated on noncontrast CT study of the abdomen and pelvis. Diagnostic code #3 I agree with preliminary report from [facility], finalized on 01/08/21, 2:44 AM CDT, code 1
== END 2021-01-08 02:33 | disposition home or self-care (01) ==
LOC: JD.ED 19:43
DX: N13.2 Hydronephrosis with renal and ureteral calculous obstruction (principal); E66.9 Obesity, unspecified; Z79.899 Other long term (current) drug therapy; Z68.45 Body mass index [BMI] 70 or greater, adult; Z88.6 Allergy status to analgesic agent; Z91.013 Allergy to seafood
CPT/HCPCS: 36415; 74176; 80053; 81001; 81025; 85025; 86140; 87086; 96374; 96375; 99284; J1170; J1885; J2405; J7030

== ENCOUNTER 2021-05-10 09:51 | Emergency (ER) | payer MEDICAID ==
[2021-05-10] MEDS ORDERED: Diphtheria,Pertussis(Acell),Tetanus Vaccine 0.5 ML Syringe IM ONE (12:23)
--- NOTE | 2021-05-10 12:30 | EDM.PDOC ---
ED HPI GENERAL MEDICAL PROBLEM - General Chief Complaint: Laceration Stated Complaint: L THUMB LAC Time Seen by Provider: 05/10/21 12:16 Source of Information: Reports: Patient, RN Notes Reviewed History Limitations: Reports: No Limitations - History of Present Illness INITIAL COMMENTS - FREE TEXT/NARRATIVE: Patient is a 35-year-old female who presents to the ER for the evaluation of her left thumb laceration. Patient notes she was using a hack saw at home, when she ended up lacerating her left posterior thumb. The laceration itself is about 1 cm, linear in length, and is near the proximal nail bed. This does violate the nail as well, for about 0.5 cm of the entire laceration. Patient can still move her thumb in all range of motion without difficulty. She is not complaining of any sort of numbness/tingling. Patient denies any other sick-like symptoms, fever/chills, cough/shortness of breath, nausea/vomiting/diarrhea. Patient is not sure she is up-to-date on her Tdap vaccination. Left Finger-Thumb Pain Score (Numeric/FACES): 6 - Related Data Allergies Allergy/AdvReac Type Severity Reaction Status Date / Time coconut Allergy Severe Hives Verified 10/26/20 16:16 aspirin AdvReac Severe Other Verified 10/26/20 16:16 Home Meds: Home Meds oxyCODONE HCl/Acetaminophen [Percocet 2.5-325 mg Tablet] 1 - 2 tab PO Q6H PRN #20 tablet 01/08/21 [Rx] Amphetamine/Dextroamphetamine [Adderall] 20 mg PO DAILY 05/10/21 [History] Cetirizine [ZyrTEC] 10 mg PO DAILY 05/10/21 [History] Sertraline [Zoloft] 50 mg PO DAILY 05/10/21 [History] Past Medical History Gastrointestinal History: Reports: Inflammatory Bowel Disease [employer] History: Reports: Musculoskeletal History: Reports: Other (See Below) Psychiatric History: Reports: Anxiety Endocrine/Metabolic History: Reports: Diabetes, Gestational, Obesity/BMI 30+ - Infectious Disease History Infectious Disease History: Reports: Novel Coronavirus, Scarlet Fever, Shingles Other Infectious Disease History: May 2020 - Past Surgical History HEENT Surgical History: Reports: Oral Surgery GI Surgical History: Reports: Appendectomy Social & Family History - Family History Family Medical History: No Pertinent Family History - Tobacco Use Tobacco Use Status *Q: Never Tobacco User - Caffeine Use Caffeine Use: Reports: Coffee - Recreational Drug Use Recreational Drug Use: No - Living Situation & Occupation Living situation: Reports: , with Spouse, with Family (2 kids) Occupation: Unemployed ED ROS GENERAL - Review of Systems Review Of Systems: Comprehensive ROS is negative, except as noted in HPI. ED EXAM, SKIN/RASH Exam: See Below Exam Limited By: No Limitations General Appearance: Alert, WD/WN, No Apparent Distress Respiratory/Chest: No Respiratory Distress, Lungs Clear, Normal Breath Sounds, No Accessory Muscle Use, Chest Non-Tender Cardiovascular: Normal Peripheral Pulses, Regular Rate, Rhythm, No Edema Peripheral Pulses: 2+: Radial (L), Radial (R) Extremities: Normal Range of Motion, Normal Capillary Refill Neurological: Alert, Oriented, Normal Cognition, No Motor/Sensory Deficits Psychiatric: Normal Affect, Normal Mood Skin: Warm, Dry, Normal Color, No Rash, Wound/Incision (1 cm linear laceration to the patient's posterior proximal left thumbnail and thumb. This is superficial, and will not require sutures. The laceration in the nailbed however did seem to cut the nail, but it is laying down well enough at this time, which will also not require suturing or fixation.) ED SKIN PROCEDURES - Laceration/Wound Repair Left Posterior Digit - 1st (Thumb) Appearance: Superficial, Linear, Clean Distal NVT: Neuro & Vascular Intact, No Tendon Injury Skin Prep: Chlorhexidine (Hibiciens), Saline Exploration/Debridement/Repair: Wound Explored, In a Bloodless Field, Explored to Base, No Foreign Material Found Closed with: Other (Patient will have some bandaged with a pressure dressing type dressing.) Lac/Wound length In cm: 1 Sterile Dressing Applied: Nurse Tetanus Status Addressed: Yes (updated to today's visit) Complications: No Course - Vital Signs Last Recorded V/S: Last Vital Signs Temp 97.7 F 05/10/21 11:15 Pulse 80 05/10/21 11:15 Resp 20 05/10/21 11:15 BP 152/92 H 05/10/21 11:15 Pulse Ox 100 05/10/21 11:15 - Orders/Labs/Meds Orders: Active Orders 24 hr Category Date Time Status Vaccine to be Administered/Admin Charge [RC] ASDIRECTED Care 05/10/21 12:23 Ordered Diphth,Pertuss(Acell),Tet Vac [Boostrix] Med 05/10/21 12:23 Once 0.5 ml IM .ONCE ONE - Re-Assessments/Exams Free Text/Narrative Re-Assessment/Exam: 05/10/21 12:27 Patient presents to the ER for the evaluation of her left thumb laceration. Due to the wound being mostly superficial on the skin, no laceration repair will be performed at today's visit, I did give her general wound care management and she verbalized understanding. Patient will have her tetanus vaccine updated at today's visit. Departure - Departure Time of Disposition: 12:28 Disposition: Home, Self-Care 01 Condition: Good Clinical Impression: Laceration of left thumb with damage to nail Qualifiers: Encounter type: initial encounter Foreign body presence: without foreign body Qualified Code(s): S61.112A - Laceration without foreign body of left thumb with damage to nail, initial encounter - Discharge Information *PRESCRIPTION DRUG MONITORING PROGRAM REVIEWED*: No *COPY OF PRESCRIPTION DRUG MONITORING REPORT IN PATIENT VALE: No Instructions: Nail Bed Injury, [id number], Laceration Care, Adult, [id number] Referrals: Hermila Goodman NP [Primary Care Provider] - Additional Instructions: You have been evaluated in the ED for your laceration. Your wound was evaluated, and no sutures were placed at today's visit due to the nature of the wound. It is likely that as the nail grows out, you might want to be more careful on keeping her nails cut short, as to not significant on anything to prevent ripping of the nail. Please keep this area clean and dry, you may cleanse with regular soap and water. No vigorous scrubbing. You may apply topical bacitracin to the area along with a bandage over the next few days to help provide good wound management. Watch out for signs of infection like increased redness, swelling, pain at the laceration site, or if you should develop any fevers or chills. Tdap booster was updated at today's visit. This should be good for period of roughly 10 years. Please return to ED if your symptoms change or worsen. Sepsis Event Note (ED) - Focused Exam Vital Signs: Vital Signs Temp Pulse Resp BP Pulse Ox 05/10/21 11:15 97.7 F 80 20 152/92 H 100 - My Orders Last 24 Hours: My Active Orders 05/10/21 12:23 Vaccine to be Administered/Admin Charge [RC] ASDIRECTED Diphth,Pertuss(Acell),Tet Vac [Boostrix] 0.5 ml IM .ONCE ONE - Assessment/Plan Last 24 Hours: My Active Orders 05/10/21 12:23 Vaccine to be Administered/Admin Charge [RC] ASDIRECTED Diphth,Pertuss(Acell),Tet Vac [Boostrix] 0.5 ml IM .ONCE ONE
== END 2021-05-10 13:03 | disposition home or self-care (01) ==
LOC: JD.ED 09:51
DX: S61.112A Laceration without foreign body of left thumb with damage to nail, initial encounter (principal); E66.9 Obesity, unspecified; Z68.34 Body mass index [BMI] 34.0-34.9, adult; Z91.018 Allergy to other foods; Z88.8 Allergy status to other drugs, medicaments and biological substances; Z86.16 Personal history of COVID-19; Z23 Encounter for immunization; W27.0XXA Contact with workbench tool, initial encounter; Y92.009 Unspecified place in unspecified non-institutional (private) residence as the place of occurrence of the external cause
CPT/HCPCS: 90471; 90715; 99282

== ENCOUNTER 2021-12-22 12:54 | Emergency (ER) | payer MEDICAID ==
[2021-12-22] MEDS ORDERED: Promethazine 25 MG/ML SDV IM ONE (13:24)
[2021-12-22] MEDS ORDERED: HYDROmorphone 1 MG/ML Syringe IM ONE (13:24)
[2021-12-22] MEDS ORDERED: Silver Sulfadiazine 1% Crm 400 GM Jar TOP ONE (13:25)
== END 2021-12-22 14:11 | disposition home or self-care (01) ==
LOC: JD.ED 12:54
DX: T24.211A Burn of second degree of right thigh, initial encounter (principal); T21.12XA Burn of first degree of abdominal wall, initial encounter; E66.9 Obesity, unspecified; Z68.30 Body mass index [BMI] 30.0-30.9, adult; Z79.899 Other long term (current) drug therapy; Z86.16 Personal history of COVID-19; Z91.018 Allergy to other foods; Z88.6 Allergy status to analgesic agent; Z90.49 Acquired absence of other specified parts of digestive tract; X19.XXXA Contact with other heat and hot substances, initial encounter
CPT/HCPCS: 16020; 96372; 99283; A9270; J1170; J2550

== ENCOUNTER 2021-12-23 14:41 | Emergency (ER) | payer MEDICAID | END 2021-12-23 16:20 | disposition home or self-care (01) | LOC: JD.ED 14:41 | DX: T21.22XA Burn of second degree of abdominal wall, initial encounter (principal); T24.211A Burn of second degree of right thigh, initial encounter; T21.25XA Burn of second degree of buttock, initial encounter; E66.9 Obesity, unspecified; Z68.30 Body mass index [BMI] 30.0-30.9, adult; Z86.16 Personal history of COVID-19; Z88.8 Allergy status to other drugs, medicaments and biological substances; Z91.018 Allergy to other foods; X12.XXXA Contact with other hot fluids, initial encounter | CPT/HCPCS: 16025; 99283; 99283-25 ==